=== PATIENT | female | born 1985 | race Caucasian/White ===

== ENCOUNTER 2019-01-21 16:36 | Emergency (ER) | payer OTHER ==
[~2019-01-21] VITALS: Ht 167.6 cm; Wt 78.0 kg
[2019-01-21 19:04] VITALS: BP 123/59
== END 2019-01-21 19:05 | disposition home or self-care (01) ==
LOC: ER 16:36
DX: J45.909 Unspecified asthma, uncomplicated (principal); Z87.440 Personal history of urinary (tract) infections; Z87.09 Personal history of other diseases of the respiratory system
CPT/HCPCS: 71045; 93005; 99283